=== PATIENT | male | born 1960 | race Caucasian/White ===

== ENCOUNTER 2017-01-08 17:07 | Emergency (ER) | payer OTHER ==
[~2017-01-08] VITALS: Ht 175.3 cm; Wt 69.8 kg
[~2017-01-08 17:07] MED LIST: KADIAN60 MG PO; NAPROSYN500 MG PO; NORVASC10 MG PO; PREDNISONE20 MG PO; PRINIVIL20 MG PO; REMERON45 MG PO; ROXICODONE30 MG PO; SEROQUEL200 MG PO; SOMA350 MG PO; VIIBRYD40 MG PO
[2017-01-08 18:31] VITALS: BP 120/79
== END 2017-01-08 18:32 | disposition home or self-care (01) ==
LOC: EME 17:07
DX: S39.012A Strain of muscle, fascia and tendon of lower back, initial encounter (principal); W50.2XXA Accidental twist by another person, initial encounter; Y93.F9 Activity, other caregiving; Y92.239 Unspecified place in hospital as the place of occurrence of the external cause; Y99.0 Civilian activity done for income or pay; Z88.0 Allergy status to penicillin; Z88.8 Allergy status to other drugs, medicaments and biological substances; F17.200 Nicotine dependence, unspecified, uncomplicated
CPT/HCPCS: 99281; 99283